=== PATIENT | female | born 1960 | race Caucasian/White ===

== ENCOUNTER 2024-04-15 17:13 | Emergency (ER) | payer BC, SELFPAY ==
[2024-04-15 17:15] VITALS: BP 156/102
[2024-04-15 17:48] LABS: % Basophils 0.3 % (0-2); % Eosinophils 0.4 % (0-6); % Immature Granulocytes 0.3 % (0-0.5); % Lymphocytes 18.6 % (20.5-51.1); % Monocytes 5.9 % (1.7-9.3); % Neutrophils 74.5 % (42.2-75.2); Absolute Lymphocytes 1.8 10^3/uL (1.2-3.4); Absolute Monocytes 0.6 10^3/uL (0.1-0.6); Absolute Neutrophils 7.4 10^3/uL (1.4-6.5); Hematocrit 43.8 % (37.0-47.0); Hemoglobin 15.3 g/dL (12.0-16.0); Mean Corp Hgb Conc. 34.9 g/dL (33.0-37.0); Mean Corpuscular Hgb 29.9 pg (27.0-31.0); Mean Corpuscular Volume 85.5 fL (81.0-99.0); Mean Platelet Volume 10.4 fL (7.4-10.4); Nucleated Red Blood Cells % 0 %; Platelet Count 229 10^3/uL (130-400); Red Blood Cell Count 5.12 10^6/uL (4.20-5.40); Red Cell Dist. Width 12.8 % (11.5-14.5); White Blood Cell Count 9.9 10^3/uL (4.8-10.8)
[2024-04-15 17:58] LABS: ALT (SGPT) 17 U/L (0-35); AST (SGOT) 28 U/L (14-36); Alkaline Phosphatase 80 U/L (38-126); Blood Urea Nitrogen 11 mg/dl (7-17); Carbon Dioxide 27 mmol/L (22-30); Chloride 102 mmol/L (98-107); Glucose 100 mg/dl (70-99); Potassium 4.4 mmol/L (3.5-5.1); Sodium 138 mmol/L (135-145); Total Protein 7.4 g/dl (6.3-8.2); eGFR > 60.00
[2024-04-15 18:09] LABS: Troponin I < 0.012 ng/ml
[2024-04-15 18:40] VITALS: BMI 24.6
[2024-04-15 19:14] VITALS: BP 145/84
[2024-04-15] MEDS: TYLENOL 650 MG PO (19:28)
--- NOTE | 2024-04-15 20:46 | ED.GENMED ---
History of Present Illness
General
Chief Complaint: Chest Pain
Source: patient
Exam Limitations: none
Time Seen by Provider: 04/15/24 18:34
Nursing documentation reviewed up to this point in time: agreed with
History of Present Illness
History of Present Illness:
63-year-old female past medical history of thyroid disease presenting to the emergency department today with concerns of chest heaviness that occurred after eating earlier today with radiation down the left arm and posterior neck and head has some
lightheadedness and nausea associated. Also had a brief episode of diarrhea. Symptoms have been improving since and are now much better at this point but did last for multiple hours prior to arrival. Symptoms started roughly 3 to 4 hours prior to
assessment in the ER.
Past History
Past History
ED Past Medical History: Hypothyroidism
ED Past Surgical History: None
Social History
Tobacco: Smoker
Alcohol: Occasional
Drug: None
Personal:
Living: with family
Employment: Employed
Family History
Family History: Other (Noncontributory); Negative Early CAD or CAD
Review of Systems
Review of Systems
Allergies reviewed?: Yes
All Other Systems: ROS reviewed and negative except as documented in HPI and ROS
Phy Exam
Physical Exam
Physical Exam:
GENERAL: Alert , in no apparent distress
EYE: pupils equal and reactive
NECK: Supple, no significant adenopathy.
ENT: o/p clr, mmm.
CARDIAC: Regular rate and rhythm .
LUNGS: Clear breath sounds bilaterally, no acute respiratory distress, no wheezes/rales/rhonchi
ABDOMEN: Soft, without focal tenderness, no r/g, no cvat
NEUROLOGICAL: Alert and oriented, no focal neuro deficits
SKIN: Warm and dry, skin intact.
MUSCULOSKELETAL: No edema, well perfused.
PSYCH: Normal and appropriate interaction.
Scores
Heart Score for Chest Pain Patients
STEMI patient?: No
History: Slightly or Non-Suspicious
ECG: Normal
Age: >45 - <65 years
Risk Factors: 1 or 2 Risk Factors
Troponin: </= Normal Limit
Heart Score for Chest Pain Patients: 2
Heart Score Risk: 2.5% MACE over next 6 weeks
Course
Orders/Labs/Results
Orders:
Orders
04/15/24 17:17
ECG [Electrocardiogram (*1)] Urgent
Reason for Study: Chest Pain
EKG- Treatment ONCE
04/15/24 17:31
Complete Blood Count/With Diff Urgent
Comprehensive Metabolic Panel Urgent
Troponin I Urgent
04/15/24 19:04
Chest [CR Chest - 2 Views ] Urgent
Comment:
Reason For Exam: cp
04/15/24 19:19
Acetaminophen [Tylenol] 650 mg PO NOW STA
04/15/24 20:17
EKG [Electrocardiogram (*1)] Urgent
Reason for Study: Chest Pain
EKG- Treatment ONCE
04/15/24 20:57
Troponin I Urgent
Abnormal Lab Results
04/15/24
17:31
Absolute Neuts (auto) 7.4 H 10^3/uL
(1.4-6.5)
Lymphocytes % 18.6 L %
(20.5-51.1)
Glucose 100 H mg/dl
(70-99)
Calcium 11.0 H mg/dl
(8.4-10.2)
04/15/24 17:31
04/15/24 17:31
Vital Signs
Initial and Last Documented VS:
Initial Vital Signs
Temp Pulse Resp BP Pulse Ox
99.1 F 53 18 156/102 98
04/15/24 17:15 04/15/24 17:15 04/15/24 17:15 04/15/24 17:15 04/15/24 17:15
Last Documented Vital Signs
Temp Pulse Resp BP Pulse Ox
99.1 F 66 19 113/65 98
04/15/24 17:15 04/15/24 22:00 04/15/24 22:00 04/15/24 22:00 04/15/24 17:15
MDM/Problems Addressed
MDM/Problems Addressed:
63-year-old female presenting to the emergency department today with concerns of chest discomfort described as a heaviness with radiation to the left arm into the neck associated lightheadedness and nausea started roughly 3 to 4 hours prior to
arrival that occurred right after eating a small amount. Did have a small mount of loose stool as well. On arrival here blood pressure slightly elevated but otherwise vital signs are normal. Labs obtained without acute abnormalities calcium was
slightly elevated 11.0 negative troponin level normal labs normal chest x-ray EKG nonischemic there was a few PVCs. This did reduce during ER stay. Second troponin negative EKG nonischemic patient appears stable for outpatient follow-up return
precautions given.
*Critical Care Note
Total Time (30-74mins, 75-104mins- exclusive of procedures): Not Applicable
ED Attending Note
-
Portions of this chart may have been created with voice recognition software.� Occasional wrong word or��sound alike� substitutions may have occurred due to the inherent limitations of voice recognition software.
Discharge Plan
Departure
Patient Disposition: Home (Routine Discharge)
Date of Disposition: 04/15/24
Time of Disposition: 22:28
Patient with high blood pressure during this ER visit?: No
Condition: Good
Covid-19: Not Applicable
Discharge Problem:
Chest pain
Instructions: Chest Pain DCA Follow Up
Prescriptions:
No Action
lorazepam 0.5 MG tablet
0.5 mg PO BID PRN (Reason: anxiety)
enzbmghp-nysq-GB-calcium-mins [Women's Daily Caplet] 1 EACH tablet
1 cap PO DAILY
[employer] Capsule
1 cap PO DAILY
levothyroxine 112 MCG tablet
112 mcg PO DAILY
Referrals:
Evelyn Chester CRNP [Family Provider] -
Activity Restrictions/Additional Instructions:
You came to the emergency department today with concerns of chest discomfort. Here you had a reassuring assessment. Please follow closely with cardiology and return to the emergency department for any worsening, new or concerning symptoms.
Interventions
Interventions:
*Risk Screen - Suicide Last Done: 04/15/24 18:40
*General Assessment Last Done: 04/15/24 18:40
*Neglect/Abuse Screening Last Done: 04/15/24 18:40
ED- Fall Risk Assessment Last Done: 04/15/24 18:52
*ED COVID-19 Vaccine History Last Done: 04/15/24 18:40
ED- Cardiac Assessment Last Done: 04/15/24 18:40
Discharge Date and Time
Print Language: ARABIC
[2024-04-15 20:56] VITALS: BP 146/85
[2024-04-15 21:00] VITALS: BP 127/66
[2024-04-15 21:27] LABS: Troponin I < 0.012 ng/ml
[2024-04-15 22:00] VITALS: BP 113/65
== END 2024-04-15 22:44 | disposition home or self-care (01) ==
LOC: EMR 17:13
PROVIDERS: Emergency Medicine; Physician Assistant; EMERGENCY PHYSICIAN Emergency Medicine; FAMILY PHYSICIAN Nurse Practitioner Family
DX: R07.89 Other chest pain (principal); E03.9 Hypothyroidism, unspecified; F17.200 Nicotine dependence, unspecified, uncomplicated; Z98.82 Breast implant status
CPT/HCPCS: 99283; 71046; 80053; 84484; 85025; 93005

== ENCOUNTER → 2024-04-29 07:39 | Outpatient (REF) | payer BC, SELFPAY | LOC: RCS 07:39 | PROVIDERS: ATTENDING PHYSICIAN Nurse Practitioner; FAMILY PHYSICIAN Nurse Practitioner Family | DX: R07.89 Other chest pain (principal) | CPT/HCPCS: 93017 ==

== ENCOUNTER → 2024-05-18 12:54 | Outpatient (REF) | payer BC, SELFPAY | LOC: RCS 12:54 | PROVIDERS: ATTENDING PHYSICIAN Nurse Practitioner; FAMILY PHYSICIAN Nurse Practitioner Family | DX: R07.89 Other chest pain (principal) | CPT/HCPCS: 93306 ==

== ENCOUNTER → 2024-06-04 17:13 | Outpatient (REF) | payer BC, SELFPAY | LOC: WDC 17:13 | PROVIDERS: ATTENDING PHYSICIAN Obstetrics & Gynecology; FAMILY PHYSICIAN Nurse Practitioner Family | DX: Z12.31 Encounter for screening mammogram for malignant neoplasm of breast (principal) | CPT/HCPCS: 77063; 77067 ==

== ENCOUNTER → 2024-10-12 07:48 | Outpatient (REF) | payer BC, SELFPAY | LOC: MRI 3T 07:48 | PROVIDERS: ATTENDING PHYSICIAN Internal Medicine; FAMILY PHYSICIAN Family Medicine | DX: K86.2 Cyst of pancreas (principal) | CPT/HCPCS: 74183; A9575 ==

== ENCOUNTER 2024-10-28 06:23 | Day surgery (SDC) | payer BC, SELFPAY | END 2024-10-28 11:21 | disposition home or self-care (01) | LOC: GI 06:23 | PROVIDERS: ATTENDING PHYSICIAN Internal Medicine; FAMILY PHYSICIAN Family Medicine | DX: Z12.11 Encounter for screening for malignant neoplasm of colon (principal); K64.9 Unspecified hemorrhoids; K57.30 Diverticulosis of large intestine without perforation or abscess without bleeding; D12.3 Benign neoplasm of transverse colon; D12.2 Benign neoplasm of ascending colon; K63.5 Polyp of colon; R07.9 Chest pain, unspecified; K44.9 Diaphragmatic hernia without obstruction or gangrene; K29.50 Unspecified chronic gastritis without bleeding; Z86.0100 Personal history of colon polyps, unspecified | CPT/HCPCS: 45385; 45380; 43239; 88305; 88342 ==

== ENCOUNTER → 2025-08-09 07:41 | Outpatient (REF) | payer BC, SELFPAY | LOC: RAD 07:41 | PROVIDERS: ATTENDING PHYSICIAN Student in an Organized Health Care Education/Training Program; FAMILY PHYSICIAN Nurse Practitioner Family; REFERRING PHYSICIAN Obstetrics & Gynecology | DX: E07.9 Disorder of thyroid, unspecified (principal); E55.9 Vitamin D deficiency, unspecified; M81.0 Age-related osteoporosis without current pathological fracture | CPT/HCPCS: 77080 ==